=== PATIENT | female | born 1985 | race African-American/Black ===

== ENCOUNTER 2016-04-16 12:47 | Emergency (ER) | payer MEDICAID ==
[2016-04-16 13:03] VITALS: BMI 42.6
[2016-04-16 13:04] VITALS: BP 137/63; PULSE 78; TEMP 98.1
--- NOTE | 2016-04-16 14:11 | EDPRACDOC ---
- General Information Chief Complaint: Chest Wall Pain Stated Complaint: CHEST PAIN, SHOB Time Seen by Provider: 04/16/16 13:54 Information Source: Patient Mode of Arrival: Car Home Medications: Home Medications Alprazolam [Xanax] 0.25 mg PO Q6H PRN 12/24/15 Hydrocodone Bit/Acetaminophen [Hydrocodon-Acetaminophen 5-325] 1 tab PO Q6 PRN # 15 tab 12/24/15 Metronidazole [Flagyl] 500 mg PO BID #14 tab 12/24/15 Sertraline HCl 25 mg PO QHS 12/24/15 Diclofenac Potassium 50 mg PO BID #14 tablet 04/16/16 Pantoprazole Sodium [Protonix] 40 mg PO DAILY #30 tab 04/16/16 Allergies/Adverse Reactions: Allergies Allergy/AdvReac Type Severity Reaction Status Date / Time No Known Allergies Allergy Verified 04/16/16 13:03 - History of Present Illness Onset: 1 YR HPI: PT C/O CHEST PAIN ON THE LEFT SIDE INTERMITTENTLY FOR 1 YEAR. NO DIFFERENT TODAY. PT ALSO C/O COUGH AND CONGESTION. APPEARS NON TOXIC SITTING UP ON SIDE OF BED IN NAD. PT STATES HAS H/O ANXIETY AND PANIC ATTACKS. Chest Pain Location: Reports: Left Chest Pain Radiation: Reports: None Symptoms Occur: Reports: Suddenly (INTERMITTENT) PE Risk Factors: Reports: None Medications within 24 Hours: Reports: None Prehospital Care: Reports: None Pain Came On: Reports: Suddenly Pain Status: Present Now Pain Description: Reports: Aching Pain Severity: Mild Pain Worsens With: Reports: Nothing Pain Improves With: Reports: Nothing Associated Signs and Symptoms: Reports: None ED Past Medical History - History Reviewed Yes Nurses notes reviewed and agree except as marked Travel Outside of [place] in the Last 3 Months?: No - Patient Medical History Psychological History: Reports: Anxiety. Denies: Depression Systemic History: Denies: Cancer Surgical History: Reports: Other () - Family Medical History Reports: Cancer (PGM, MGF-Lung CA). Denies: Hypertension, Diabetes, Stroke, Cardiac Disorders - Social Medical History Smoking Status: Heavy tobacco smoker (5 or more cigarettes/day or daily pipe/ cigar) ETOH: None Substance Abuse: None Lives With: Other Lives In: Home EDM Review of Systems - Review of Systems ROS Negative Except as Marked: Yes All systems reviewed and were negative except as marked Constitutional: No Symptoms Reported. negative: Fever, Chills, Weakness, Fatigue, Loss of Appetite Eyes: No Symptoms Reported. negative: Redness, Blurred Vision, Double Vision, Discharge, Pain, Light Sensitive, Photophobia Ears: No Symptoms Reported. negative: Pain, Hearing Loss, Drainage, Ear Pulling Throat: No Symptoms Reported. negative: Pain, Swelling Nose: No Symptoms Reported. negative: Congestion, Bleeding, Discharge, Injection, Swelling, Deformity, Ecchymosis, Tender, Abrasion, Laceration Mouth: No Symptoms Reported. negative: Pain, Drooling Respiratory: Cough. negative: Barky Cough, Brassy Cough, Hemoptysis, Shortness of Breath, Wheezing Cardiovascular: Chest Pain (LEEFT SIDE). negative: Cyanosis, Edema, Orthopnea, Palpitations, PND, Syncope, Skin Mottling Gastrointestinal: No Symptoms Reported. negative: Pain, Constipation, Nausea, Vomiting, Diarrhea, Melena, Formula Intolerance Genitourinary: No Symptoms Reported. negative: Dysuria, Hematuria, Frequency, Discharge, Bleeding, Testicular Pain, Neurological: No Symptoms Reported. negative: Headache, Dizziness, Seizure, Numbness, Weakness, Speech Difficulty, Gait Difficulty Musculoskeletal: Chestwall (LT). negative: Arm, Ankle, Back, Elbow, Forearm, Femur, Foot, Hand, Hip, Knee, Leg, Neck, Pelvis, Ribs, Shoulder, Wrist Integumentary: No Symptoms Reported. negative: Itching, Rash, Bruising, Wound Allergic/Immunologic: No Symptoms Reported. negative: Hives, Itching Hematologic: No Symptoms Reported. negative: Lymphadenopathy, Easy Bruising, Easy Bleeding Endocrine: No Symptoms Reported. negative: Weight Gain, Weight Loss Psychiatric: No Symptoms Reported. negative: Anxiety, Depression, Hallucinations, Insomnia, Suicidal - Physical Exam Constitutional: No apparent distress, Alert (Awake) Oriented to: Time, Person, Place Last recorded Vital Signs: Last Vital Signs Temp 98.1 F 04/16/16 13:03 Pulse 78 04/16/16 13:03 Resp 18 04/16/16 13:03 BP 137/63 04/16/16 13:03 Pulse Ox 99 04/16/16 13:03 Oxygen Pulse Oxygen Saturation 99 O2 Device Oxygen Flow Rate Fraction of Inspired Oxygen ( FIO2) - HEENT Head: Normal ( normocephalic) Eye Exam: Normal (PERRL, EOMI, Sclera white) Oropharynx: Normal (Pharynx:Moist without exudate,Gums-no swelling) Tympanic Membrane: Normal ENT EAC: Normal TMJ: Normal Nose: No Symptoms Reported (septum midline) Neck: Normal (FROM, trachea at midline) - Respiratory/Cardiovascular Respiratory: Normal - CTA (BBS clear to auscultation without adventitious sounds ) Cardiovascular: Normal (RRR without murmur, gallop or rub) - GI Auscultation: Normal (NABS) Palpation: Normal (Soft,No rebound or guarding, non distended) Tenderness: Non tender [place]'s Sign: Negative - Bladder: Normal - Musculoskeletal Back: Normal (Non-Tender) Extremities: Normal (Normal tone, Pulses 2+ No cyanosis or edema, FROM) - Integumentary Skin: Normal, Warm, Dry Lymphatics: Normal (no adenopathy) - Neurologic Memory Impaired: Normal Motor Function: Normal (Normal tone, Pulses 2+ No cyanosis or edema, FROM) Cranial Nerve: Normal (CN II-X11 intact sensation, strength 5/5) Cerebellar: Normal Mood Description: Normal Perception: Normal ED Chest Pain Exam - Respiratory/Cardiovascular Respiratory: Normal - CTA Cardiovascular/Chest: Normal Radial Pulse: Normal Femoral Pulse: Normal Pedal Pulse: Normal Carotid Arteries: Normal Chest Palpation: Normal - Differential Diagnosis Chest wall pain, Costochondritis, Gastritis, Pleuritis - Action Patient received Aspirin within last 24 hours?: No ASA given in the ED: No Aspirin therapy held due to: Other-specify below* (NON CARDIAC SYMPTOMS) Patient received Beta Dwaine within last 24hrs: No - Results All Results Reviewed and Normal except as Highlighted below: Yes - EKG EKG #1 EKG Time: 13:09 -: Yes EKG interpreted by me Rate: bpm: 76 [place]: Normal Rhythm: NSR Block: None Hypertrophy: None ST: Normal - Additional Information XRAY NOT INDICATED, NO NEW SYMPTOMS OR SIGNS OF RESPIRATORY DISTRESS AT THIS TIME. Decision Time to Discharge: 14:13 - Departure Disposition: Home Condition: Stable Final Diagnosis: Chest wall pain Instructions: Chest Wall Pain Education/Counseling Given To: Patient Education/Counseling Given Regarding: Diagnosis, Treatment, Prognosis, Follow Up Referrals: Ajith Jade MD [Primary Care Provider] - One Week Prescriptions: Diclofenac Potassium 50 mg PO BID #14 tablet Pantoprazole Sodium [Protonix] 40 mg PO DAILY #30 tab Additional Instructions: STOP YOUR MOBIC WHILE TAKING THE MEDICATIONS PRESCRIBED TODAY. RETURN FOR WORSE OR DIFFERENT SYMPTOMS.
== END 2016-04-16 14:47 | disposition home or self-care (01) ==
LOC: EDMC 12:47
DX: R07.89 Other chest pain (principal); F41.9 Anxiety disorder, unspecified; F17.200 Nicotine dependence, unspecified, uncomplicated; Z79.899 Other long term (current) drug therapy
CPT/HCPCS: 99283